=== PATIENT | female | born 1995 | race Hispanic/Latino ===

== ENCOUNTER 2019-01-21 18:49 | Emergency (ER) | payer OTHER ==
[2019-01-21 19:43] LABS: APPEARANCE,URINE SL CLOUDY (CLEAR); BILIRUBIN,URINE SMALL (NEGATIVE); COLOR,URINE YELLOW (YELLOW); GLUCOSE, URINE (UA) NEGATIVE (NEGATIVE); KETONES,URINE 5 mg/dL (NEGATIVE); LEUKOCYTE ESTERASE ,URINE SMALL (NEGATIVE); NITRATE,URINE NEGATIVE (NEGATIVE); OCCULT BLOOD,URINE TRACE-INTACT (NEGATIVE); PH,URINE 5.5 (5.0-8.0); PROTEIN,URINE NEGATIVE (NEGATIVE); UROBILINOGEN,URINE 0.2 mg/dL (0.2-1.0)
[2019-01-21 19:49] LABS: HCG,QUAL RESULT NEGATIVE (NEGATIVE)
[2019-01-21 19:52] LABS: BACTERIA,URINE Few /HPF (None Seen); MUCUS,URINE Moderate LPF (None Seen); SQUAMOUS EPITHELIAL CELL,UR Few /HPF (0-2)
[2019-01-21 19:58] LABS: CALCIUM OXALATE CRYSTALS,UR Few /LPF (None Seen)
== END 2019-01-21 20:28 | disposition home or self-care (01) ==
LOC: EDH 18:49
DX: R30.0 Dysuria (principal)
CPT/HCPCS: 81001; 81025